=== PATIENT | male | born 1970 | race American Indian/Alaskan Native ===

== ENCOUNTER 2018-11-06 22:10 | Emergency (ER) | payer OTHER ==
[2018-11-06 22:47] VITALS: RESP 18; O2SAT 97
[2018-11-07 00:27] LABS: HEMOGLOBIN 13.7 g/dL (12.0-18.0); MEAN CELL VOLUME 79.4 fl (80.0-94.0); MEAN CORPUSCULAR HEMOGLOBIN 26.4 pg (27.0-31.0); MEAN CORPUSCULAR HGB CONC 33.3 g/dL (33.0-37.0); RBC 5.19 Mil/uL (4.40-5.90); RED CELL DISTRIBUTION WIDTH 15.3 % (11.5-14.5); WHITE BLOOD COUNT 5.1 K/uL (4.8-10.8)
[2018-11-07 00:38] LABS: BLOOD UREA NITROGEN 20 mg/dl (9-20); CALCIUM 9.4 mg/dL (8.4-10.2); GFR NON-AFRICAN AMERICAN > 60
--- NOTE | 2018-11-07 00:38 | ED PDOC ---
HPI: Male Pain Time Seen by Provider: 11/06/18 23:00 Chief Complaint (Nursing): GI Problem Chief Complaint (Provider): Rectal Bleeding History Per: Patient History/Exam Limitations: no limitations Onset/Duration Of Symptoms: Hrs Current Symptoms Are (Timing): Still Present Additional Complaint(s): 48 y/o male with a PMHx of HTN and an Aortic Abdominal Aneurysm with repair presents to the ED for evaluation of rectal bleeding, onset 3 hours prior to arrival. Patient reports of having 3 episodes of bright red rectal bleeding measuring at about half a cup since about 9:00 PM. Patient states when symptoms occurred, he felt his blood pressure rise and began feeling lightheaded. Otherwise, patient denies abdominal pain, constipation, straining of stool, chest pain and shortness of breath. PMD: Felicitas Past Medical History Reviewed: Historical Data, Nursing Documentation, Vital Signs Vital Signs: Last Vital Signs Temp 98.9 F 11/06/18 22:43 Pulse 90 11/06/18 22:43 Resp 18 11/06/18 22:43 BP 163/114 H 11/06/18 22:43 Pulse Ox 97 11/06/18 22:43 - Medical History PMH: HTN Denies: Chronic Kidney Disease Other PMH: Arotic Abdominal Aneurysm with repair - Surgical History Other surgeries: AAA repair - Family History Family History: States: Unknown Family Hx - Allergies Allergies/Adverse Reactions: Allergies Allergy/AdvReac Type Severity Reaction Status Date / Time Penicillins Allergy RASH Verified 11/06/18 22:42 Review of Systems ROS Statement: Except As Marked, All Systems Reviewed And Found Negative Cardiovascular: Negative for: Chest Pain Respiratory: Negative for: Shortness of Breath Gastrointestinal: Negative for: Abdominal Pain, Constipation, Other (straining of stool ) Genitourinary Male: Positive for: Other (Rectal Bleeding) Physical Exam - Reviewed Nursing Documentation Reviewed: Yes Vital Signs Reviewed: Yes - Physical Exam Appears: Positive for: Well Head Exam: Positive for: ATRAUMATIC, NORMOCEPHALIC Skin: Positive for: Normal Color, Warm, Dry Eye Exam: Positive for: Normal appearance, EOMI, PERRL Neck: Positive for: Normal, Painless ROM Cardiovascular/Chest: Positive for: Regular Rate, Rhythm. Negative for: Murmur Respiratory: Positive for: Normal Breath Sounds. Negative for: Respiratory Distress Gastrointestinal/Abdominal: Positive for: Normal Exam, Soft. Negative for: Tenderness Rectal: Positive for: Other (ED RN Sadi Gomez acted as keno attendant.). Negative for: Black Stool (Stool is light brown) Extremity: Positive for: Normal ROM. Negative for: Deformity Neurologic/Psych: Positive for: Alert, Oriented. Negative for: Motor/Sensory Deficits - Laboratory Results Result Diagrams: 11/07/18 02:03 11/06/18 23:46 - ECG O2 Sat by Pulse Oximetry: 97 (RA) Pulse Ox Interpretation: Normal Medical Decision Making Medical Decision Making: Time: 2334 A/P: 48 y/o male with a PMHx of HTN and Abdominal Aortic Aneurysm presenting with rectal bleeding. -- Patient is very well appearing, hemodynamically stable. -- Differentials include but not limited to hemorrhoids, angiodysplasia and diverticulosis -- Will monitor patient for further management. -- Will do CBC (x2) and keep patient on monitor. -- Type and Screen -- BMP -- CBC with differentials Time: 40 Plan: -- Occult Blood, Stool, ER Time: 030 -- Patient reports an improvement of symptoms. Patient is stable for discharge home with a diagnosis of rectal bleeding. Return parameters provided. Patient advised to follow up with PMD for further management. Scribe Attestation: Documented by Madisyn Pascal, acting as a scribe for Sina Dejesus MD. Provider Scribe Attestation: All medical record entries made by the Scribe were at my direction and personally dictated by me. I have reviewed the chart and agree that the record accurately reflects my personal performance of the history, physical exam, medical decision making, and the department course for this patient. I have also personally directed, reviewed, and agree with the discharge instructions and disposition Disposition - Clinical Impression Clinical Impression: Rectal bleeding - Patient ED Disposition Is Patient to be Admitted: No Counseled Patient/Family Regarding: Studies Performed, Diagnosis, Need For Followup, Rx Given - Disposition Referrals: John Brizuela MD [Family Provider] - Disposition: Routine/Home Disposition Time: 03:00 Condition: IMPROVED Instructions: Bloody Stools Forms: [facility] ([place]ian)
[2018-11-07 02:24] LABS: HEMOGLOBIN 12.5 g/dL (12.0-18.0); MEAN CELL VOLUME 79.8 fl (80.0-94.0); MEAN CORPUSCULAR HEMOGLOBIN 26.3 pg (27.0-31.0); MEAN CORPUSCULAR HGB CONC 32.9 g/dL (33.0-37.0); RBC 4.76 Mil/uL (4.40-5.90); RED CELL DISTRIBUTION WIDTH 15.1 % (11.5-14.5); WHITE BLOOD COUNT 5.1 K/uL (4.8-10.8)
[2018-11-07 05:46] VITALS: BP 138/94; PULSE 84; TEMP 98.6
== END 2018-11-06 23:10 | disposition home or self-care (01) ==
LOC: H.ER 22:10
DX: K62.5 Hemorrhage of anus and rectum (principal); I10 Essential (primary) hypertension; Z86.79 Personal history of other diseases of the circulatory system; Z88.0 Allergy status to penicillin
CPT/HCPCS: 80048; 85027; 86850; 86900; 99283; G0328